=== PATIENT | female | born 1985 | race American Indian/Alaskan Native ===

== ENCOUNTER 2018-08-02 19:10 | Emergency (ER) | payer OTHER ==
--- NOTE | 2018-08-03 01:10 | Emergency Department Report ---
ED General Adult HPI - General Chief complaint: Skin/Abscess/Foreign Body Stated complaint: BUMP ON HEAD Time Seen by Provider: 08/03/18 00:02 Source: patient Mode of arrival: Ambulatory Limitations: No Limitations - History of Present Illness Initial comments: 33-year-old German female was is much department complaining of recurrent painful wound to the top of the head which is fluctuant 7 nature. States that the painful nodule is been there for several months and occasionally becomes painful for a couple days. She had a flareup was started on the on yesterday which continues today, so she presents today to the emergency department for further evaluation and treatment recommendations. Reports no fever, or trauma. No nausea, no vomiting, no headache or blurred vision. Location: head Severity scale (0 -10): 5 Consistency: constant Improves with: none Worsens with: none Associated Symptoms: denies other symptoms. denies: chest pain, cough, diaphoresis, loss of appetite, nausea/vomiting, rash, shortness of breath, syncope, weakness Treatments Prior to Arrival: none - Related Data Previous Rx's Medication Instructions Recorded Last Taken Type Cyclobenzaprine [Flexeril] 10 mg PO TID PRN #14 tablet 10/09/13 Unknown Rx HYDROcodone/APAP 5-325 [Garrett 1 each PO Q6HR PRN #14 tablet 10/09/13 Unknown Rx 5/325 mg] Ibuprofen [Motrin 800 MG tab] 800 mg PO Q8H #30 tablet 10/09/13 Unknown Rx Ketorolac [Toradol] 10 mg PO Q6H PRN #10 tablet 08/03/18 Unknown Rx cephALEXin [Keflex] 500 mg PO Q6HR #40 capsule 08/03/18 Unknown Rx Allergies Allergy/AdvReac Type Severity Reaction Status Date / Time No Known Allergies Allergy Verified 08/02/18 20:48 ED Review of Systems ROS: Stated complaint: BUMP ON HEAD Other details as noted in HPI Constitutional: denies: chills, fever Eyes: denies: eye pain, eye discharge, vision change ENT: denies: ear pain, throat pain, hearing loss Respiratory: denies: cough, shortness of breath, wheezing Cardiovascular: denies: chest pain, palpitations Endocrine: no symptoms reported Gastrointestinal: denies: abdominal pain, nausea, diarrhea Genitourinary: denies: urgency, dysuria, discharge Musculoskeletal: denies: back pain, joint swelling, arthralgia Skin: change in color. denies: rash, lesions Neurological: denies: headache, weakness, paresthesias Psychiatric: denies: anxiety, depression Hematological/Lymphatic: denies: easy bleeding, easy bruising ED Past Medical Hx - Past Medical History Previous Medical History?: No - Surgical History Past Surgical History?: No - Social History Smoking Status: Current Every Day Smoker Substance Use Type: Alcohol - Medications Home Medications: Home Medications Medication Instructions Recorded Confirmed Last Taken Type Cyclobenzaprine [Flexeril] 10 mg PO TID PRN #14 tablet 10/09/13 Unknown Rx HYDROcodone/APAP 5-325 [Garrett 1 each PO Q6HR PRN #14 tablet 10/09/13 Unknown Rx 5/325 mg] Ibuprofen [Motrin 800 MG tab] 800 mg PO Q8H #30 tablet 10/09/13 Unknown Rx Ketorolac [Toradol] 10 mg PO Q6H PRN #10 tablet 08/03/18 Unknown Rx cephALEXin [Keflex] 500 mg PO Q6HR #40 capsule 08/03/18 Unknown Rx ED Physical Exam - General Limitations: No Limitations General appearance: alert, in no apparent distress - Head Head exam: Present: atraumatic, normocephalic, other - Expanded Head Exam Expanded 1 - Erythematous inclusions cystic lesion here minimal fluctuation with palpation. No lymphangitis. Minimal tenderness with expression of the swelling - Eye Eye exam: Present: normal appearance, PERRL, EOMI Pupils: Present: normal accommodation - ENT ENT exam: Present: normal exam, mucous membranes moist - Neck Neck exam: Present: normal inspection, full ROM. Absent: tenderness, meningismus - Respiratory Respiratory exam: Present: normal lung sounds bilaterally. Absent: respiratory distress, wheezes, rales, rhonchi, chest wall tenderness, accessory muscle use, decreased breath sounds - Cardiovascular Cardiovascular Exam: Present: regular rate, normal rhythm. Absent: systolic murmur, diastolic murmur, rubs, gallop - GI/Abdominal GI/Abdominal exam: Present: soft, normal bowel sounds. Absent: tenderness, guarding, rebound, hyperactive bowel sounds, hypoactive bowel sounds, organomegaly - Extremities Exam Extremities exam: Present: normal inspection, full ROM, normal capillary refill. Absent: tenderness, pedal edema, joint swelling - Back Exam Back exam: Present: normal inspection - Neurological Exam Neurological exam: Present: alert, oriented X3, CN II-XII intact, normal gait - Psychiatric Psychiatric exam: Present: normal affect, normal mood. Absent: anxious, flat affect, manic - Skin Skin exam: Present: warm, dry, intact, normal color. Absent: rash, diaphoretic, erythema ED Course Vital Signs 08/02/18 20:09 Temperature 97.9 F Pulse Rate 94 H Respiratory 16 Rate Blood Pressure 121/86 [Right] O2 Sat by Pulse 100 Oximetry Critical care attestation.: If time is entered above; I have spent that time in minutes in the direct care of this critically ill patient, excluding procedure time. ED Disposition Clinical Impression: Inclusion cyst Disposition: - TO HOME OR SELFCARE Is pt being admited?: No Does the pt Need Aspirin: No Condition: Stable Additional Instructions: Overview Inflamed epidermoid cyst on side of nose Epidermoid cyst Epidermoid ([id number]) cysts are noncancerous small bumps beneath the skin. They can appear anywhere on the skin, but are most common on the face, neck and trunk. Epidermoid cysts are slow growing and often painless, so they rarely cause problems or need treatment. You might choose to have a cyst removed by a doctor if its appearance bothers you or if it's painful, ruptured or infected. Many people refer to epidermoid cysts as sebaceous cysts, but they're different. True sebaceous cysts are less common. They arise from the glands that secrete oily matter that lubricates hair and skin (sebaceous glands). Symptoms Epidermoid cyst signs and symptoms include: A small, round bump under the skin, usually on the face, neck or trunk A tiny blackhead plugging the central opening of the cyst A thick, yellow, smelly material that sometimes drains from the cyst Redness, swelling and tenderness in the area, if inflamed or infected When to see a doctor Most epidermoid cysts don't cause problems or need treatment. See your doctor if you have one or more that: Grows rapidly Ruptures or becomes painful or infected Occurs in a spot that's constantly irritated Bothers you for cosmetic reasons Is in an unusual location, such as a finger and toe Request an Appointment at [facility] Causes The surface of your skin (epidermis) is made up of a thin, protective layer of cells that your body continuously sheds. Most epidermoid cysts form when these cells move deeper into your skin and multiply rather than slough off. Sometimes the cysts form due to irritation or injury of the skin or the most superficial portion of a hair follicle. The epidermal cells form the short of the cyst and then secrete the protein keratin into the interior. The keratin is the thick, yellow substance that sometimes drains from the cyst. This abnormal growth of cells may be due to a damaged hair follicle or oil gland in your skin. Many people refer to epidermoid cysts as sebaceous cysts, but they're different. True sebaceous cysts are less common. They arise from the glands that secrete oily matter that lubricates hair and skin (sebaceous glands). Risk factors Nearly anyone can develop one or more epidermoid cysts, but these factors make you more susceptible: Being past puberty Having certain rare genetic disorders Injuring the skin Complications Potential complications of epidermoid cysts include: Inflammation. An epidermoid cyst can become tender and swollen, even if it's not infected. An inflamed cyst is difficult to remove. Your doctor is likely to postpone removing it until the inflammation subsides. Rupture. A ruptured cyst often leads to a boil-like infection that requires prompt treatment. Infection. Cysts can become infected and painful (abscessed). Skin cancer. In very rare cases, epidermoid cysts can lead to skin cancer. Diagnosis Doctors can usually make a diagnosis by looking at the cyst. Your doctor may also scrape off skin cells and examine them under a microscope or take a skin sample (biopsy) for detailed analysis in the laboratory. Epidermoid cysts look like sebaceous cysts, but they're different. True epidermoid cysts result from damage to hair follicles or the outer layer of skin (epidermis). Treatment You can usually leave a cyst alone if it doesn't cause discomfort or cosmetic problems. If you seek treatment, talk with your doctor about these options: Injection. This treatment involves injecting the cyst with a medicine that reduces swelling and inflammation. Incision and drainage. With this method, your doctor makes a small cut in the cyst and gently squeezes out the contents. This is a fairly quick and easy method, but cysts often recur after this treatment. Minor surgery. Your doctor can remove the entire cyst. You may need to return to the doctor's office to have stitches removed. Minor surgery is safe and effective and usually prevents cysts from recurring. If your cyst is inflamed, your doctor may delay the surgery. Request an Appointment at [facility] Lifestyle and home remedies You can't stop epidermoid cysts from forming. But you can help prevent scarring and infection by: Not squeezing a cyst yourself Placing a warm, moist cloth over the area to help the cyst drain and heal Preparing for your appointment You'll probably first visit your primary care doctor. He or she will diagnose your condition and outline treatment for your cyst. Options may include observation, incision and drainage if it is inflamed or infected, and removal. Occasionally, you may be referred to a doctor who specializes in skin disorders (event specialist food demonstrator). Here's some information to help you get ready for your appointment. What you can do List your [place] medical information, such as conditions you've been treated for and medications, vitamins and supplements you take. Note any recent injuries to your skin, including surgical incisions and accident al wounds. List questions you have about your condition. Having a list of questions can help you make the most of your time with your doctor. Below are some basic questions to ask your doctor about epidermoid cysts. If any additional questions occur to you during your visit, don't hesitate to ask. Do I have an epidermoid cyst? What causes this type of cyst? Is the cyst infected? What treatment do you recommend, if any? Will I have a scar after treatment? Am I at risk of this condition recurring? Can I do anything to help prevent a recurrence? Do epidermoid cysts increase my risk of other health problems? What to expect from your doctor Your doctor is likely to ask you a number of questions, such as: When did you notice this skin growth? Have you noticed any other skin growths? Have you had similar growths in the past? If so, on what parts of your body? Have you had severe acne? Is the growth causing any discomfort? Are you embarrassed by the growth? Have you had any recent skin injuries, including minor scrapes? Have you recently had a surgical procedure in the affected area? Does anyone in your family have a history of acne or multiple cysts? What you can do in the meantime Resist the urge to try to squeeze or "pop" your cyst. Your doctor will be able to take care of the cyst with the least risk of scarring and infection. Prescriptions: cephALEXin [Keflex] 500 mg PO Q6HR #40 capsule Ketorolac [Toradol] 10 mg PO Q6H PRN #10 tablet PRN Reason: Pain Referrals: SHAWANDA BAZZI MD [Primary Care Provider] - 3-5 Days
== END 2018-08-03 01:41 | disposition home or self-care (01) ==
LOC: ED 19:10
CPT/HCPCS: 99282